=== PATIENT | female | born 1960 | race Asian ===

== ENCOUNTER 2016-12-03 17:30 | Emergency (ER) | payer OTHER ==
[2016-12-03 17:47] VITALS: BP 117/73; PULSE 95; TEMP 98.6; BMI 27.3
[2016-12-03] MEDS ORDERED: IBUPROFEN 600 MG TABLET (FP) PO ONE ×2 (18:43→18:53)
[2016-12-03] MEDS ORDERED: DIPHTH,PERTUSS(ACELL),TET 0.5 ML DISP.SYRIN IM ONE (18:43)
--- NOTE | 2016-12-03 18:44 | PDOC ---
History of Present Illness - General Chief Complaint: Laceration Stated Complaint: LACERATION ON RIGHT FOOT Time Seen by Provider: 12/03/16 18:02 History Source: Patient Exam Limitations: No Limitations - History of Present Illness Initial Comments: 12/03/16 18:44 CHIEF COMPLAINT: Foot laceration HISTORY OF PRESENT ILLNESS: This is a 56 year old female with a history of HLD who presents with a right foot laceration after scraping her foot on a kitchen countertop. She is not sure when she last received a tetanus vaccine. REVIEW OF SYSTEMS: GENERAL/CONSTITUTIONAL: No fever or chills. No weakness. No weight change. MUSCULOSKELETAL: No joint or muscle swelling or pain. No neck or back pain. SKIN: See HPI. NEUROLOGIC: No headache, vertigo, loss of consciousness, or loss of sensation. HEMATOLOGIC/LYMPHATIC: No anemia, easy bleeding, or history of blood clots. ALLERGIC/IMMUNOLOGIC: No hives or skin allergy. No latex allergy. PHYSICAL EXAM: GENERAL: The patient is awake, alert, and fully oriented, in no acute distress. EXTREMITIES: Normal range of motion, no edema. DP/PT pulses 2+. 2-point discrimination intact. NEUROLOGICAL: Normal speech, normal gait. CN II-XII grossly intact. PSYCH: Normal mood, normal affect. SKIN: Warm, dry, normal turgor. V-shaped laceration with central flap and contused tissue, 2cm on either side. Past History - Past Medical History Allergies/Adverse Reactions: Allergies Allergy/AdvReac Type Severity Reaction Status Date / Time No Known Allergies Allergy Verified 12/03/16 17:43 Home Medications: Ambulatory Orders Rosuvastatin [Crestor -] 10 mg PO DAILY 12/03/16 Hypercholesterolemia: Yes Suicide Attempt (Hx): No - Immunization History Immunization Up to Date: Yes - Psycho/Social/Smoking Cessation Hx Anxiety: No Suicidal Ideation: No Smoking History: Never smoked Have you smoked in the past 12 months: No Information on smoking cessation initiated: No Hx Alcohol Use: No Drug/Substance Use Hx: No Substance Use Type: None *Physical Exam - Vital Signs Last Vital Signs Temp Pulse Resp BP Pulse Ox 98.6 F 95 H 20 117/73 99 12/03/16 17:45 12/03/16 17:45 12/03/16 17:45 12/03/16 17:45 12/03/16 17:45 Procedures - Laceration/Wound Repair Right Foot Wound Length: 2.6 to 5.0 cm Wound's Depth, Shape: irregular, contused tissue Irrigated w/ Saline: Yes Betadine Prep: Yes Anesthesia: 1% Lidocaine Amount of Anesthetic (ccs): 4 Wound Debrided: minimal Wound Repaired With: Sutures Suture Size/Type: 5:0 Number of Sutures: 13 Sterile Dressing Applied: Yes Medical Decision Making - Medical Decision Making 12/03/16 19:34 A/P: 56 year old female with foot laceration. -Wound irrigation and laceration repair -Tetanus booster -Wound care, followup, and return precautions reviewed *DC/Admit/Observation/Transfer Diagnosis at time of Disposition: Foot laceration Qualifiers: Encounter type: initial encounter Laterality: right Qualified Code(s): S91.311A - Laceration without foreign body, right foot, initial encounter - Discharge Dispostion Disposition: HOME Condition at time of disposition: Stable Admit: No - Referrals Referrals: Soren Flowers MD [Primary Care Provider] - - Patient Instructions Printed Discharge Instructions: DI for Laceration Repair Additional Instructions: -Keep the wound covered for 48 hours -After that, wash gently with soap and water, pat dry, and apply bacitracin once daily -Return here or see your primary care doctor in 10 days for suture removal -Return sooner for redness around the wound or any other concerning symptoms - Post Discharge Activity
[2016-12-03] MEDS ORDERED: LIDOCAINE HCL 1%, 10 MG/ML (20ML VIAL) ONE (18:47)
== END 2016-12-03 19:32 | disposition home or self-care (01) ==
LOC: JERFT 17:30
PROC: 0HQMXZZ Repair Right Foot Skin, External Approach (ICD-10-PCS; principal; 2016-12-03)
PROC: 3E0234Z Introduction of Serum, Toxoid and Vaccine into Muscle, Percutaneous Approach (ICD-10-PCS; 2016-12-03)
DX: S91.311A Laceration without foreign body, right foot, initial encounter (principal); W45.8XXA Other foreign body or object entering through skin, initial encounter; Y93.9 Activity, unspecified; Y92.000 Kitchen of unspecified non-institutional (private) residence as the place of occurrence of the external cause; E78.5 Hyperlipidemia, unspecified
CPT/HCPCS: 90715; 99281-25